=== PATIENT | female | born 1975 | race Two or more races ===

== ENCOUNTER 2022-07-12 07:06 | Emergency (ER) | payer MEDICAID, SELFPAY ==
[2022-07-12 07:38] VITALS: BP 128/71; PULSE 88; RESP 16; TEMP 37.7; O2SAT 99; BMI 21.6
[2022-07-12 08:08] LABS: IDNOW Serial# 16C4AD1C; IDNOW Serial# BCCEAD1C; Influenza A Negative (Negative); Influenza B2 Negative (Negative)
[2022-07-12 08:09] LABS: COVID-19 Test Positive (Negative)
--- NOTE | 2022-07-12 09:30 | ED.FEVER ---
HPI - Fever General Chief Complaint: Fever Stated Complaint: Fever/Headache/Ear pain Time Seen by Provider: 07/12/22 09:30 Source: patient Mode of arrival: ambulatory Limitations: no limitations History of Present Illness HPI Narrative: 46 yo female with no significant medical history presents to the ER with chills, body aches, and subjective fevers that started yesterday. She reports headaches, nasal congestion, bilateral ear pain, and some mild cough. No known sick contacts. She lives home alone. 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 She denies difficutly breathing, chest pains, N/V/D or abdominal pain. She reports poor appetite. MD elicited complaint: fever and malaise Onset (ago): day(s) (1) Exacerbating factors: exertion Relieving factors: rest Associated symptoms: chills, myalgias, headache, nasal congestion, cough, back/flank pain and extremity pain Treatments prior to arrival fever: none Related Data Allergies Allergy/AdvReac Type Severity Reaction Status Date / Time No Known Allergies Allergy Mild NOT Unverified 02/27/20 17:08 APPLICABLE Review of Systems Review of Systems: Yes all other systems are reviewed and are negative [facility] Social History Social History Advance Directives: No Advance Directives Information Provided: Yes Physical Exam Vital Signs: Vital Signs: Last Vital Signs Temp 98.8 F 07/12/22 09:31 Pulse 88 07/12/22 07:38 Resp 20 07/12/22 09:31 BP 118/55 L 07/12/22 09:31 Pulse Ox 99 07/12/22 09:31 O2 Del Method 07/12/22 09:31 BMI result Body Mass Index 21.6 Appearance: Alert. Oriented X3. No acute distress. Eyes: Pupils equal, round and reactive to light. ENT: Pharynx normal. Normal TMs bilaterally. Neck: Normal inspection. Neck supple. CVS: Normal heart rate and rhythm. Pulses normal. Respiratory: No respiratory distress. Breath sounds normal. Abdomen: Soft and nontender. +BS x4 Skin: Skin warm and dry. Normal skin color. Normal skin turgor. No rashes. Extremities: No lower extremity edema. No calf tenderness or swelling. Neuro: Oriented X 3. Nonfocal, steady gait. Course Course Course Narrative: 46 yo female presenting with fever, chills, body aches, headaches since yesterday. VSS and PE unremarkable. Found to have COVID. She is vaccinated x2 but not boosted due to swelling in the chest after 2nd Moderna vaccine in 2020. Discussed diagnosis, management and return precautions. She is stable for d/c home, work note provided. Medical Decision Making Medical Decision Making [facility] Narrative: 46-year-old female presenting with subjective fevers, chills, body aches and headaches. Nontoxic with stable vital signs, most likely viral syndrome. Differential Diagnosis Differential Diagnoses: The differential diagnosis associated with the presentation includes Viral syndrome, COVID, flu, RSV, less likely pneumonia, UTI, or other bacterial infection Lab Data [facility] Lab Attestation statement: I reviewed the patient's lab results. COVID positive. Labs: Lab Results 07/12/22 07/12/22 Range/Units 07:42 07:42 COVID-19 (DIALLO) Positive A (Negative) COVID-19 Clin Com See Note Influenza Type A (TONIE) Negative (Negative) Influenza Type B (TONIE) Negative (Negative) Influenza A & B Note See Note External Record Review External record reviewed: Outpatient record Tests considered The following testing was considered but not selected: Chest x-ray considered, not indicated, lungs are clear with saturations 99%. Prescription Management I considered prescription management with: Antiviral Critical Care Time Critical Care Time Critical Care Time: No Discharge Plan Discharge Clinical Impression: COVID-19 Patient Disposition: Home, Self-Care Instructions: Covid-19 Viral Syndrome and Novel Coronavirus (ED) Hey/Ath Additional Instructions: You were found to be COVID-19 POSITIVE today. Your exam oxygen levels were normal. Rest. Drink plenty of fluids. Do not go out in public for the next 7 days. Take over the counter cold/flu medications as needed for your symptoms. Take Tylenol and/or Motrin as needed for fevers and body aches. Follow up with your doctor this week. If you shortness of breath worsens, if you develop difficulty breathing or any other concerning symptom come back to the ER for further evaluation. Stand Alone Forms: Work/School Release
[2022-07-12 09:31] VITALS: BP 118/55; RESP 20; TEMP 37.1; O2SAT 99
== END 2022-07-12 09:45 | disposition home or self-care (01) ==
PROVIDERS: Emergency Provider Emergency Medicine
DX: U07.1 COVID-19 (principal); R50.9 Fever, unspecified
CPT/HCPCS: 87502; 87635; 99283

== ENCOUNTER 2022-07-19 08:48 | Emergency (ER) | payer MEDICAID, SELFPAY ==
[2022-07-19 08:55] VITALS: BP 132/76; PULSE 72; RESP 18; TEMP 36.1; O2SAT 99; BMI 21.6
--- NOTE | 2022-07-19 09:09 | PC.NURSE ---
Patient extremely upset/crying about employer not allowing her back to work due to a recent Covid diagnosis on 07/12. She is looking for a clearance note for work. NAD.
--- NOTE | 2022-07-19 09:19 | ED_ITS ---
HPI - General Adult General Chief complaint: General Medical Stated complaint: upset stomach l ear pain + covid Time Seen by Provider: 07/19/22 09:03 Source: patient Mode of arrival: ambulatory Limitations: no limitations History of Present Illness HPI narrative: 46-year-old female previously healthy here looking for a letter to return to work. Patient reports she was seen here on July 12 and tested positive for COVID. She has been quarantine at home since then. She wanted to return to work today but her job told her that she needed to have a negative COVID test. Patient is asymptomatic. Related Data Allergies Allergy/AdvReac Type Severity Reaction Status Date / Time No Known Allergies Allergy Mild NOT Verified 07/19/22 08:54 APPLICABLE Review of Systems Review of Systems: Yes all other systems are reviewed and are negative Constitutional: Constitutional: Reports no additional constitutional complaints, Denies body ache(s), Denies chills, Denies fever(s), Denies headache(s) and Denies weakness Eyes: Eyes: Reports no additional eye complaints and Denies change in vision ENT: Reports system reviewed and no additional complaints, except as documented, Denies dizziness, Denies headache(s), Denies nasal congestion, Denies nasal discharge and Denies neck pain Cardiovascular: Cardiovascular: Reports no additional cardiovascular complaints, Denies chest pain, Denies leg edema and Denies dyspnea Respiratory: Respiratory: Reports no additional respiratory complaints, Denies cough and Denies dyspnea Gastrointestinal: Gastrointestinal: Reports no additional gastrointestinal complaints, Denies abdominal pain, Denies diarrhea, Denies nausea and Denies vomiting Genitourinary: Genitourinary: Reports no additional female genitourinary complaints and Denies urinary incontinence Musculoskeletal: Musculoskeletal: Reports no additional musculoskeletal complaints, Denies back pain, Denies arthralgias, Denies joint swelling, Denies neck pain, Denies numbness and Denies tingling Integumentary/Breasts: Skin/Breast: Reports system reviewed and no additional complaints, except as docu and Denies rash Neurologic: Reports system reviewed and no additional complaints, except as documented, Denies dizziness, Denies headache(s), Denies numbness, Denies tingling and Denies weakness PMF Past Medical History Attestation statement: The following information was validated with the patient. Source: old records reviewed and nursing notes reviewed Social History Social History Advance Directives: No Physical Exam ED Vital Signs: Vital Signs - 24 hr 07/19/22 08:55 Temperature 97 F Pulse Rate 72 Respiratory Rate 18 Blood Pressure 132/76 Pulse Oximetry 99 Oxygen Delivery Method Room Air BMI result Body Mass Index 21.6 Const General: cooperative, healthy appearing, comfortable and no acute distress Orientation/consciousness: patient oriented x3 Limitations: no limitations HENMT Head: Yes normal to inspection Ears: hearing grossly normal bilaterally and TM's normal bilaterally Throat: Yes posterior oropharynx normal, Yes tonsils normal and Yes uvula midline Eyes General: appearance normal, both eyes and all related structures Pupils: Equal, round and reactive pupils present Neck Neck: Yes normal visual inspection and Yes full ROM Chest Chest palpation & inspection: normal inspection of the chest Resp Effort & Inspection: normal respiratory effort Auscultation: clear to auscultation bilaterally Cardio Rate: regular rate Rhythm: regular rhythm Peripheral pulses: Peripheral pulses 2+ throughout GI Inspection: Yes normal to inspection Palpation (GI): Soft to palpation and nontender General: Yes no CVA tenderness Back/Spine/Pelvis Back: no CVA tenderness Thoracic/Lumbar Spine: thoracic and lumbar spine normal to inspection Skin General skin exam: no rashes or lesions noted Neuro General: patient oriented x3 and moves all extremities Cranial nerves: Yes Equal, round and reactive pupils present Cognition (Neuro): normal cognition Gait exam (Neuro): Normal gait present Medical Decision Making Medical Decision Making [facility] Narrative: 46-year-old female here seeking return to work letter. Patient reports she tested positive f July 12 for COVID. She has been quarantine at home since then. She wanted to return to work today but was informed by her job that she needed a negative COVID test. Patient reports no symptoms and feels well I did explain to the patient that she may test positive for several weeks or months after having COVID-19. This does not mean that she cannot return to work sooner. She has completed her quarantine per [facility]. At this point I do not believe it is beneficial to retest her. I will give her a letter to return to work. Patient is agreeable with this plan of care. Differential Diagnosis Differential Diagnoses: The differential diagnosis associated with the presentation includes COVID Tests considered The following testing was considered but not selected: see discussion in MDM Discharge Plan Discharge Clinical Impression: Encounter for medical screening examination Patient Disposition: Home, Self-Care Instructions: Normal Exam (ED) Referrals: Physician,Unknown J [Primary Care Provider] - Stand Alone Forms: Work/School Release Interventions: ED Discharge Assessment Last Done: 07/19/22 09:36 Discharge Date/Time: 07/19/22 09:37
== END 2022-07-19 09:37 | disposition home or self-care (01) ==
PROVIDERS: Emergency Provider Emergency Medicine
DX: R10.13 Epigastric pain (principal); H92.03 Otalgia, bilateral
CPT/HCPCS: 99282

== ENCOUNTER 2023-04-03 09:22 | Emergency (ER) | payer MEDICAID, OTHER, SELFPAY | END 2023-04-03 10:29 | disposition left against medical advice (07) | LOC: HO.ED 10:28 | PROVIDERS: Emergency Provider Emergency Medicine | DX: R51.9 Headache, unspecified (principal); R11.2 Nausea with vomiting, unspecified; R07.0 Pain in throat ==

== ENCOUNTER 2025-04-10 05:09 | Observation (INO) | payer OTHER, SELFPAY ==
[2025-04-10] VITALS (9 sets, daily range): BP systolic 100–158; BP diastolic 60–98; PULSE 54–147; RESP 14–20; TEMP 35.7–36.7; O2SAT 93–100; BMI 21.5
--- NOTE | 2025-04-10 | ECG_ITS ---
Test Reason : tachy Blood Pressure : */* mmHG Vent. Rate : 143 BPM Atrial Rate : 143 BPM P-R Int : 124 ms QRS Dur : 74 ms QT Int : 266 ms P-R-T Axes : * 65 -82 degrees QTcB Int : 410 ms Sinus tachycardia Nonspecific ST and T wave abnormality Abnormal ECG When compared with ECG of 10-Oct-2009 13:30, Increase in ventricular rate Nonspecific ST and T wave abnormality Present Referred By: Jodi Nicholas Electronically Signed By: ADINA REGALADO
--- NOTE | ~2025-04-10 | CT_ITS ---
EXAMINATION: CT ABDOMEN PELVIS WITHOUT IV CONTRAST HISTORY: left flank pain COMPARISON: There are no prior studies available for comparison. TECHNIQUE: CT scan of the abdomen and pelvis was performed without contrast using standard departmental protocol. Coronal and sagittal reformatted images were generated and reviewed. Oral contrast material was not administered per department protocol. This CT exam was performed with one or more of the following dose reduction techniques: automated exposure control, adjustment of the mA and/or kV according to patient size, use of iterative reconstruction technique. DLP: 392 mGy-cm FINDINGS: LOWER CHEST: The visualized lung bases are clear. There is no pleural effusion. CARDIOVASCULATURE: The heart is normal in size. There is no pericardial effusion. LIVER: The liver is normal in size and contour. The liver has an unremarkable unenhanced appearance. GALLBLADDER / BILE DUCTS: The gallbladder is unremarkable. There is no intra or extrahepatic biliary ductal dilatation. SPLEEN: The spleen is normal in size and has an unremarkable unenhanced appearance. PANCREAS: The pancreas has an unremarkable unenhanced appearance. ADRENAL GLANDS: Unremarkable. KIDNEYS/RETROPERITONEUM: There is a punctate calculus at the upper pole the right kidney and a 3 mm calculus at the lower pole. There is a probable 10 mm cyst at the upper pole. There is no hydronephrosis. The left kidney demonstrates multiple 1-2 mm nonobstructing calculi at the upper pole and multiple calculi at the lower pole measuring up to 3 mm in size. There is moderate left hydroureteronephrosis to the level of a 3 mm UVJ calculus. There is a moderate amount of perinephric fluid and stranding about the left kidney. LYMPH NODES: No retroperitoneal lymphadenopathy is identified in the abdomen or pelvis. VASCULATURE: The abdominal aorta demonstrates atherosclerotic calcification, but is normal in caliber. MESENTERY/PERITONEUM: No free fluid. No masses. There is no free intraperitoneal gas. STOMACH: There is a small to moderate hiatal hernia. The remainder of the stomach is collapsed. SMALL BOWEL: The small bowel is normal in caliber. COLON: The colon is unremarkable. APPENDIX: Normal. URINARY BLADDER/PELVIC ORGANS: The urinary bladder is collapsed, limiting evaluation. The uterus has an unremarkable unenhanced appearance. BONES / SOFT TISSUES: No suspicious bony or soft tissue abnormalities. CT/CT abdomen pelvis wo IV con IMPRESSION: 1. Moderate left hydroureteronephrosis secondary to a 3 mm UVJ calculus. Bilateral nephrolithiasis as described. 2. Small hiatal hernia. Electronically signed by: Ronnell Beal MD 04/10/2025 08:52 AM EDT
--- NOTE | ~2025-04-10 | US_ITS ---
EXAMINATION: US RETROPERITONEAL COMPLETE (RENAL) CLINICAL INFORMATION: 3 mm Left UVJ stone. COMPARISON: CT scan performed yesterday. TECHNIQUE: Real-time imaging of the kidneys and bladder. FINDINGS: RIGHT KIDNEY: 12 x 4 x 6 cm (SAG x AP x TRV). The kidney is normal in size, contour, and echogenicity. Renal cortical thickness is normal. No calculi were demonstrated. No hydronephrosis. There is a 14 mm simple cyst in the superior pole. LEFT KIDNEY: 12 x 5 x 5 cm (SAG x AP x TRV). The kidney is normal in size, contour, and echogenicity. Renal cortical thickness is normal. 3 mm echogenic focus in the lower pole is consistent with a stone. Moderate hydronephrosis was present on CT scan yesterday has nearly resolved. BLADDER: Well distended and normal. Bilateral ureteral jets are demonstrated. US/US retroperitoneal comp IMPRESSION: Moderate left hydronephrosis that was present on CT scan yesterday has nearly resolved. Additionally, the left ureteral jet was documented. This suggests that the left ureterovesicular junction stone has passed. A 3 mm stone was demonstrated in the lower pole of the left kidney. Electronically signed by: Capo Morelos MD 04/11/2025 11:24 AM EDT
[2025-04-10 05:48] LABS: Hematocrit 42.9 % (37.0-47.0); Hemoglobin 14.2 g/dl (12.0-16.0); Imm Gran Abs Auto 0.11 X10*3/uL (0.00-0.03); Imm Gran Pct Auto 0.7 % (0.0-0.4); Lymphocytes Absolute Auto 3.5 X10*3/uL (1.2-4.9); MANUAL DIFF FLAG SCAN; Mean Corpuscular HGB Conc 33.1 g/dl (31.0-35.0); Mean Corpuscular Hemoglobin 30.2 pg (27.0-33.0); Mean Corpuscular Volume 91.3 fL (80.0-98.0); NRBC Abs Auto 0.000 X10*3/uL (0.0-0.012); NRBC Pct Auto 0.0 /100WBC (0.0-0.2); Platelet Count 273 X10*3/uL (160-400); Red Blood Count 4.70 X10*6/uL (4.20-5.50); SCAN SMEAR FLAG 1; White Blood Count 16.9 X10*3/uL (4.8-10.8)
[2025-04-10 05:57] LABS: Appearance Urine Cloudy; Glucose Urine UA Negative (Negative); PH 5.0 (5.0-9.0); Specific Gravity - Urine 1.025 (1.005-1.025); UMIC TRIGGER UACC YES
[2025-04-10 06:03] LABS: Alanine Aminotransferase 13 U/L (0-31); Albumin Level 4.7 g/dL (3.5-5.0); Alkaline Phosphatase 65 U/L (39-117); Anion Gap 15 (12-20); Aspartate Amino Transferase 17 U/L (5-31); Blood Urea Nitrogen 18 mg/dL (9-16); Calcium 9.3 mg/dL (8.4-10.2); Carbon Dioxide 22 mmol/L (22-29); Chloride 106 mmol/L (96-108); Creatinine Clr Calc Pharmacy 77.9; Estimated Glomerular Filt Rate > 60; Potassium 3.4 mmol/L (3.3-5.1); Sodium 140 mmol/L (135-145); Total Protein 7.9 g/dL (6.5-8.0)
--- OUTSIDE RECORDS SUMMARY | 2025-04-10 06:04 | XMS_ITS | Data Portability ---
Author Organization [place] - [facility], [employer] Address [address] [facility] [address] [place] [address] Assessment Encounter Date Assessment Date Assessment LastModified by Organization Details LastModified Time 11/19/2021 11/19/2021 Patient is low risk candidate or moderate risk surgery. RCRI risk score is less than 1. Risk factors for pulmonary disease include: None [email or web address] Not available 11/19/2021 10:47:31 Plan of Treatment Reminders Order Date Submit Date Provider Last Modified By Organization Details Last Modified Time Details Appointments None recorded. Lab CBC w/ auto diff 2021 [employer] [facility], [address] [place], [address], 02:02:44 CMP, serum or plasma 2021 [employer] [facility], [address] [place], [address], 02:02:44 PT/INR 2021 [employer] [facility], [address] [place], [address], 02:02:45 Referral None recorded. Procedures None recorded. Surgeries None recorded. Imaging CT, abdomen, w/wo contrast - Undergoing cosmetic procure, will pay out of pocket 2021 [facility], [address], [place], [address], 10:47:36 electrocar diogram 2021 [email or web address] [facility], [address], [address], [place], [address], 10:15:14 XR, chest, 2 view - Pt will pay out of pocket. Cosmetic surgeon wants CXR 2021 [facility], [address], [address], [place], [address], 16:20:46 Medication Orders None recorded. Patient TargetsNo targets recorded. Patient InstructionsNo instructions recorded. Reason for Referral None Reported. Results Created Date Observation Date Name Description Value Unit Range Abnormal Flag Note LastModifiedBy Organization Detail LastModifiedTime 11/20/19 22 11/20/2021 COMPR EHENS ROSA METAB OLIC PANEL glucose 83 mg/dL 65-139 normal Non-f astin g refer ence inter clifford Not Available [facility] [address], [address], 11/20/2021 02:02:44 11/20/19 22 11/20/2021 COMPR EHENS ROSA METAB OLIC PANEL urea nitrogen (BUN) 16 mg/dL 7-25 normal Not Available [facility] [address], [address], 11/20/2021 02:02:44 11/20/19 22 11/20/2021 COMPR EHENS ROSA METAB OLIC PANEL creatinine 0.78 mg/dL 0.50-1 .10 normal Not Available [facility] [address], [address], 11/20/2021 02:02:44 11/20/19 22 11/20/2021 COMPR EHENS ROSA METAB OLIC PANEL eGFR non-afr. estonian 93 mL/mi n/1.7 3m2 > or = 60 normal Not Available [facility] [address], [address], 11/20/2021 02:02:44 11/20/19 22 11/20/2021 COMPR EHENS ROSA METAB OLIC PANEL eGFR 108 mL/mi n/1.7 3m2 > or = 60 normal Not Available [facility] [place] [facility] [address], [place], [address], 11/20/2021 02:02:44 11/20/19 22 11/20/2021 COMPR EHENS ROSA METAB OLIC PANEL BUN/creatini ne ratio NOT APPLIC ABLE (calc ) 6-22 Not Available [facility] [place] [facility] [address], [place], [address], 11/20/2021 02:02:44 11/20/19 22 11/20/2021 COMPR EHENS ROSA METAB OLIC PANEL sodium 138 mmol/ L 135-14 6 normal Not Available [facility] [place] [facility] [address], [place], [address], 11/20/2021 02:02:44 11/20/19 22 11/20/2021 COMPR EHENS ROSA METAB OLIC PANEL potassium 3.9 mmol/ L 3.5-5. 3 normal Not Available [facility] [address], [place], [address], 11/20/2021 02:02:44 11/20/19 22 11/20/2021 COMPR EHENS ROSA METAB OLIC PANEL chloride 101 mmol/ L 98-110 normal Not Available [facility] [address], [place], [address], 11/20/2021 02:02:44 11/20/19 22 11/20/2021 COMPR EHENS ROSA METAB OLIC PANEL carbon dioxide 29 mmol/ L 20-32 normal Not Available [facility] [address], [address], 11/20/2021 02:02:44 11/20/19 22 11/20/2021 COMPR EHENS ROSA METAB OLIC PANEL calcium 9.9 mg/dL 8.6-10 .2 normal Not Available [facility] [place] [facility] [address], [place], [address], 11/20/2021 02:02:44 11/20/19 22 11/20/2021 COMPR EHENS ROSA METAB OLIC PANEL protein, total 7.3 g/dL 6.1-8. 1 normal Not Available [facility] [address], [place], [address], 11/20/2021 02:02:44 11/20/19 22 11/20/2021 COMPR EHENS ROSA METAB OLIC PANEL albumin 4.8 g/dL 3.6-5. 1 normal Not Available [facility] [address], [place], [address], 11/20/2021 02:02:44 11/20/19 22 11/20/2021 COMPR EHENS ROSA METAB OLIC PANEL globulin 2.5 g/dL_ (calc ) 1.9-3. 7 normal Not Available [facility] [address], [place], [address], 11/20/2021 02:02:44 11/20/19 22 11/20/2021 COMPR EHENS ROSA METAB OLIC PANEL albumin/glob ulin ratio 1.9 (calc ) 1.0-2. 5 normal Not Available [facility] [address], [place], [address], 11/20/2021 02:02:44 11/20/19 22 11/20/2021 COMPR EHENS ROSA METAB OLIC PANEL bilirubin, total 0.4 mg/dL 0.2-1. 2 normal Not Available [facility] [address], [place], [address], 11/20/2021 02:02:44 11/20/19 22 11/20/2021 COMPR EHENS ROSA METAB OLIC PANEL alkaline phosphatase 47 U/L 31-125 normal Not Available [facility] [place] [facility] [address], [place], [address], 11/20/2021 02:02:44 11/20/19 22 11/20/2021 COMPR EHENS ROSA METAB OLIC PANEL AST 13 U/L 10-30 normal Not Available [facility] [address], [place], [address], 11/20/2021 02:02:44 11/20/19 22 11/20/2021 COMPR EHENS ROSA METAB OLIC PANEL ALT 9 U/L 6-29 normal Not Available [facility] [address], [place], [address], 11/20/2021 02:02:44 11/20/19 22 11/20/2021 CBC (INCL UDES DIFF/ PLT) white blood cell count 8.1 thous and/u L 3.8-10 .8 normal Not Available [facility] [address], [place], [address], 11/20/2021 02:02:44 11/20/19 22 11/20/2021 CBC (INCL UDES DIFF/ PLT) red blood cell count 4.72 rodolfo on/uL 3.80-5 .10 normal Not Available [facility] [address], [place], [address], 11/20/2021 02:02:44 11/20/19 22 11/20/2021 CBC (INCL UDES DIFF/ PLT) hemoglobin 14.3 g/dL 11.7-1 5.5 normal Not Available [facility] [address], [place], [address], 11/20/2021 02:02:44 11/20/19 22 11/20/2021 CBC (INCL UDES DIFF/ PLT) hematocrit 42.8 % 35.0-4 5.0 normal Not Available [facility] [place] [facility] [address], [place], [address], 11/20/2021 02:02:44 11/20/19 22 11/20/2021 CBC (INCL UDES DIFF/ PLT) MCV 90.7 fL 80.0-1 00.0 normal Not Available [facility] [place] [facility] [address], [place], [address], 11/20/2021 02:02:44 11/20/19 22 11/20/2021 CBC (INCL UDES DIFF/ PLT) MCH 30.3 pg 27.0-3 3.0 normal Not Available [facility] [place] [facility] [address], [place], [address], 11/20/2021 02:02:44 11/20/19 22 11/20/2021 CBC (INCL UDES DIFF/ PLT) MCHC 33.4 g/dL 32.0-3 6.0 normal Not Available [facility] [place] [facility] [address], [place], [address], 11/20/2021 02:02:44 11/20/19 22 11/20/2021 CBC (INCL UDES DIFF/ PLT) RDW 13.0 % 11.0-1 5.0 normal Not Available [facility] [place] [facility] [address], [place], [address], 11/20/2021 02:02:44 11/20/19 22 11/20/2021 CBC (INCL UDES DIFF/ PLT) platelet count 240 thous and/u L 140-40 0 normal Not Available [facility] [place] [facility] [address], [place], [address], 11/20/2021 02:02:44 11/20/19 22 11/20/2021 CBC (INCL UDES DIFF/ PLT) MPV 10.6 fL 7.5-12 .5 normal Not Available [facility] [place] [facility] [address], [place], [address], 11/20/2021 02:02:44 11/20/19 22 11/20/2021 CBC (INCL UDES DIFF/ PLT) absolute neutrophils 3815 cells /uL 1500-7 800 normal Not Available [facility] [place] [facility] [address], [place], [address], 11/20/2021 02:02:44 11/20/19 22 11/20/2021 CBC (INCL UDES DIFF/ PLT) absolute lymphocytes 2527 cells /uL 850-39 00 normal Not Available [facility] [place] [facility] [address], [place], [address], 11/20/2021 02:02:44 11/20/19 22 11/20/2021 CBC (INCL UDES DIFF/ PLT) absolute monocytes 980 cells /uL 200-95 0 high Not Available [facility] [place] [facility] [address], [place], [address], 11/20/2021 02:02:44 11/20/19 22 11/20/2021 CBC (INCL UDES DIFF/ PLT) absolute eosinophils 680 cells /uL 15-500 high Not Available [facility] [place] [facility] [address], [place], [address], 11/20/2021 02:02:44 11/20/19 22 11/20/2021 CBC (INCL UDES DIFF/ PLT) absolute basophils 97 cells /uL 0-200 normal Not Available [facility] [place] [facility] [address], [place], [address], 11/20/2021 02:02:44 11/20/19 22 11/20/2021 CBC (INCL UDES DIFF/ PLT) neutrophils 47.1 % normal Not Available [facility] [place] [facility] [address], [place], [address], 11/20/2021 02:02:44 11/20/19 22 11/20/2021 CBC (INCL UDES DIFF/ PLT) lymphocytes 31.2 % normal Not Available [facility] [address], [place], [address], 11/20/2021 02:02:44 11/20/19 22 11/20/2021 CBC (INCL UDES DIFF/ PLT) monocytes 12.1 % normal Not Available [facility] [address], [place], [address], 11/20/2021 02:02:44 11/20/19 22 11/20/2021 CBC (INCL UDES DIFF/ PLT) eosinophils 8.4 % normal Not Available [facility] [address], [place], [address], 11/20/2021 02:02:44 11/20/19 22 11/20/2021 CBC (INCL UDES DIFF/ PLT) basophils 1.2 % normal Not Available [facility] [address], [place], [address], 11/20/2021 02:02:44 11/20/19 22 11/20/2021 PROTH ROMBI N TIME- INR INR 1.0 normal Refer ence Range 0.9-1 .1 Moder ate-i ntens ity Warfa rin Thera py 2.0-3 .0 Highe r-int ensit y Warfa rin Thera py 3.0-4 .0 Not Available [facility] [place] [facility] [address], [place], [address], 11/20/2021 02:02:45 11/20/19 22 11/20/2021 PROTH ROMBI N TIME- INR PT 10.1 sec 9.0-11 .5 normal For addit ional cristopher youssef refer to http: //megan patel stdia gnost ics.c om/fa q/FAQ 104 (This link is being provi ded for gayla henry/ delores corona purpo ses only. ) Not Available [facility] [place] [facility] [address], [place], [address], 11/20/2021 02:02:45 11/20/19 elect rocar diogr am No observ ation record ed. [email or web address] [address], [place], [address], 11/19/2021 10:15:13 11/20/19 22 elect rocar diogr am No observ ation record ed. BARCODE [facility] [address] [facility] [address], [place], [address], 11/19/2021 10:18:14 Result Notes None recorded. Problems Name Problem SNOMED Code Status Onset Date Resolution Date Notes Provider Name and Address Organization Details Recorded Time Seasonal allergy 595509252 Active 022 Herman Saucedo MD [address] [facility], [place], [address] , [facility] 09:53:58 Problem Notes None recorded. Medical Equipment None Reported. Allergies No known drug allergies Medications Name Sig Start Date Stop Date Status Note LastModified by Organization Details LastModified Time Zyrtec-D 5 mg-120 mg tablet,exte nded release TAKE 1 TABLET BY MOUTH EVERY 24 HOURS active Not Available Not Available No t Available cetirizine 10 mg tablet TAKE 1 TABLET BY MOUTH EVERY DAY 11/19 completed Not Available Not Available Not Available nicotine (polacrilex ) 2 mg gum CHEW 1 GUM EVERY 2 HOURS NEEDED FOR SMOKING CESSATION 11/19 completed Not Available Not Available Not Available valacyclovi r 1 gram tablet TAKE 1 TABLET BY MOUTH TWICE A DAY FOR 10 DAYS 11/19 completed Not Available Not Available Not Available mirtazapine 15 mg tablet TAKE 2 TABLETS BY MOUTH EVERY DAY AT BEDTIME 11/19 completed Not Available Not Available Not Available ergocalcife rol (vitamin D2) 1,250 mcg (50,000 unit) capsule TAKE 1 CAPSULE BY MOUTH EVERY WEEK,X30 DAYS 11/19 completed Not Available Not Available Not Available ibuprofen 600 mg tablet TAKE 1 TABLET (ORAL) EVERY 6 HOURS NEEDED FOR 7 DAYS 11/19 completed Not Available Not Available Not Available fluticasone propionate 50 mcg/actuati on nasal spray,suspe nsion SPRAY 1 SPRAY INTO EACH NOSTRIL EVERY DAY IN THE MORNING 11/19 completed Not Available Not Available Not Available clotrimazol e 1 % topical cream APPLY 1 APPLICATI ON TOPICALLY 2 TIMES A DAY 11/19 completed Not Available Not Available Not Available Vitals Date Recorded Body weight Body mass index (BMI) Body height Body temperature Heart rate Oxygen saturation Oxygen saturation in Arterial blood by Pulse oximetry Systolic And Diastolic Provider Name and Address Organization Details Last Updated DateTime 2 57286.6 8 g 20.8 kg/m2 162.56 cm 98.1 [degF] 78 /min 98 % 98 % 121/88 mm[Hg] [facility] 2 09:45:21 Social History None recorded. Functional Status None recorded. Mental Status None recorded. Family History Nothing Reported. Medical History No medical history recorded. Gynecological HistoryNo gynecological history recorded. Obstetrics History GPAL:G 0 P 0 0 0 0 Past Encounters Encounter ID Performer Location Encounter Start Date Encounter Closed Date Diagnosis/Indication Diagnosis SNOMED-CT Code Diagnosis ICD10 Code Diagnosis IMO Codes Diagnosis Note [id number] Herman Saucedo MD [facility] [address] [facility] [address] [place] [address] 11/19/2021 09:36:27 11/19/2021 16:23:11 Pre-surgery evaluation 765943007 Z01.818 Patient is healthy and pending labs does not require any further evaluation . D/w pt that she needs to stop smoking marijuana. Ordering CXR per surgeon Cosmetic surgery 0373600 0 Z41.1 Pt is getting ladr864. Plan per surgeon Umbilical hernia 5940498 07 K42.9 Per surgeon, pt need a CT w/wo contrast. Pt will pay out of pocket. Health Concerns Section Related Observation LastModified by Organization Detai ls LastModified Time None Recorded Concern Status LastModified by Organization Details LastModified Time None Recorded Advance Directives Directive None Recorded Payers Insurance Date Sequence Insurance Name Policy Number Policy Garland Covered Member ID Garland Member ID Guarantor Name 11/19/2021 1 *SELF PAY* Gl divine Man Notes Date Note Type Note Provider Name and Address Organization Details Recorded Time 11/19/2021 text/html ROS as noted in the HPI Patient is here for a preop evaluation. Pt is scheduled for cosmetic surgery on December 03, 2021.Surgeon: Bebeto Waddell MDPCP: [facility]: Yes. Uses MarijuanaAlcohol use: Mild.Sleep apnea: Snoring - Yes, Does not fall asleep easily while driving, Does not fall asleep easily during the dayMax Activity Status: can do heavy work around the houseGoing for Liposuction 360 with possible hernia repair. Herman Saucedo MD [address] [place] [address],[address], [place], [address], [place] [facility] 11/23/2021 12:27:34 OBGyn Episode No OBEpisode recorded.
--- OUTSIDE RECORDS SUMMARY | 2025-04-10 06:04 | XMS_ITS | Clinical Summary ---
Author Organization [facility] Address [address] [place] [address] Care Team Providers Care Embroidery Patternmaker Name Role Phone Herman Saucedo MD Primary Care Provider [phone] Social History Tobacco Use Types Packs/Day Years Used Date Smoking Tobacco: Never Assessed Sex and Gender Information Value Date Recorded Sex Assigned at Not on file Gender Identity Not on file Sexual Orientation Not on file Plan of Treatment Health Maintenance Due Date Last Done Comments Hepatitis B Vaccines (1 of 3 - 3-dose series) 1977 Hepatitis C Screening 1977 COVID-19 Vaccine (#1) 05/29/1978 Depression Screening 1989 Preventative Health Evaluation 11/28/1995 DTap / Tdap / Td (1 - Tdap) 1996 Cervical Cancer Screening (P ap Smear) 1998 Colon Cancer Screening (Colonoscopy) 2022 Influenza Vaccine (#1) 2025 Pneumococcal Vaccine Aged Out No long er eligible based on patient's age to complete this topic RSV Ped < 20 months Aged Out No longe r eligible based on patient's age to complete this topic Care Teams Embroidery Patternmaker Relationship Specialty Start Date End Date Herman Saucedo MD [address] [place] [id number] PCP - General Internal Medicine 11/19/21
--- NOTE | 2025-04-10 06:25 | ED_ITS ---
HPI - Nausea/Vomiting/Diarrhea General Chief complaint: Nausea/Vomiting/Diarrhea Stated complaint: n/v/d Time Seen by Provider: 04/10/25 06:02 Source: patient Mode of arrival: ambulatory Limitations: no limitations History of Present Illness HPI Narrative: This is a 49 years old female presented to the emergency department complaining of left flank pain since yesterday , she has been vomiting as well and is present since last night MD elicited complaint: nausea and vomiting Onset (ago): day(s) (1) Description of vomiting: watery Associated abdominal pain: Yes Location of pain: L flank Radiation: left flank Pain consistency: constant Severity: moderate Quality: cramping Exacerbating factors: none Relieving factors: none Related Data Home Medications ?Medication ?Instructions ?Recorded ?Confirmed cetirizine 10 mg tablet 10 mg PO DAILY 04/10/25 mirtazapine 15 mg tablet 15 mg PO BEDTIME 04/10/25 Allergies Allergy/AdvReac Type Severity Reaction Status Date / Time No Known Allergies Allergy Mild NOT Verified 04/10/25 05:13 APPLICABLE Review of Systems 2 Constitutional: Constitutional: Reports no additional constitutional complaints Cardiovascular: Cardiovascular: Reports no additional cardiovascular complaints Neurologic: Reports system reviewed and no additional complaints, except as documented PMFSH Past Medical History [facility] Narrative: She denies any medical problems Social History Social History Smoked in Last 30 Days: No Use of substances other than those prescribed or required for medical reasons: Yes Substance Use Type: Marijuana Advance Directives: No Advance Directives Information Provided: Yes Patient : No Physical Exam 2 Exam: Exam: Mild distress Vital Signs: Vital Signs: Last Vital Signs Temp 96.3 F L 04/10/25 06:35 Pulse 69 04/10/25 06:35 Resp 20 04/10/25 11:11 BP 158/98 H 04/10/25 05:35 Pulse Ox 100 04/10/25 06:35 O2 Del Method Room Air 04/10/25 06:35 BMI result Body Mass Index 21.5 Const: General: cooperative Nutritional Appearance: average body habitus Orientation/consciousness: patient oriented x3 HEENT: Head: Yes normal to inspection General nose exam: Normal external nose present Face and sinus: Yes normal facial exam Mouth: Normal oral and palatal mucosa present Neck: Neck: Yes full ROM Chest: Chest palpation & inspection: normal inspection of the chest Resp: Effort & Inspection: normal respiratory effort Auscultation: clear to auscultation bilaterally Cardio: Jugular venous distension: no JVD Rate: regular rate Rhythm: r egular rhythm GI: Inspection: Yes normal to inspection Palpation (GI): Soft to palpation Percussion: Yes normal to percussion Skin: General skin exam: no rashes or lesions noted, elasticity normal and turgor normal Rashes: no rashes Neuro: General: patient oriented x3 Cranial nerves: Yes CN's II-XII intact bilaterally Course Reevaluation(s) Reevaluation #1: Patient is still complaining of pain after multiple rounds of pain medicine I discussed the case with the urologist at this time we will admit the patient for pain control if the pain continues she may need the ureteric stent Time: 11:07 Consultations Consultation #1: Urologist Medications Administered Discontinued Medications Generic Name Dose Route Start Last Admin Trade Name Freq PRN Reason Stop Dose Admin Hydromorphone HCl 0.5 mg 04/10/25 06:40 04/10/25 06:49 Hydromorphone Hcl 0.5 Mg/0.5 Ml Syringe IVPUSH 04/10/25 06:41 0.5 mg ONCE ONE Administration Protocol Hydromorphone HCl 0.5 mg 04/10/25 09:13 04/10/25 09:30 Hydromorphone Hcl 0.5 Mg/0.5 Ml Syringe IVPUSH 04/10/25 09:14 0.5 mg ONCE ONE Administration Protocol Hydromorphone HCl 0.5 mg 04/10/25 10:49 04/10/25 11:11 Hydromorphone Hcl 0.5 Mg/0.5 Ml Syringe IVPUSH 04/10/25 10:50 0.5 mg ONCE ONE Administration Protocol Sodium Chloride 1,000 mls @ 999 mls/hr 04/10/25 06:30 04/10/25 08:38 Ns IVCONT 04/10/25 07:30 Infused .Q1H1M RONNY Infusion Lactated Ringer's 1,000 mls @ 999 mls/hr 04/10/25 09:45 04/10/25 10:38 Lr IV 04/10/25 10:45 999 mls/hr .Q1H1M RONNY Administration Ketorolac Tromethamine 15 mg 04/10/25 06:21 04/10/25 06:29 Ketorolac Tromethamine 15 Mg/Ml Vial IVPUSH 04/10/25 06:22 15 mg ONCE ONE Administration Ondansetron HCl 4 mg 04/10/25 06:21 04/10/25 06:29 Ondansetron Hcl 4 Mg/2 Ml Vial IVPUSH 04/10/25 06:22 4 mg ONCE ONE Administration Ondansetron HCl 4 mg 04/10/25 09:35 04/10/25 10:39 Ondansetron Hcl 4 Mg/2 Ml Vial IVPUSH 04/10/25 09:36 4 mg ONCE ONE Administration Tamsulosin HCl 0.4 mg 04/10/25 11:05 04/10/25 11:10 Tamsulosin Hcl 0.4 Mg Capsule PO 04/10/25 11:06 0.4 mg ONCE ONE Administration Medical Decision Making Medical Decision Making [facility] Narrative: Patient presented with a left flank pain nausea and vomiting we will administer IV fluid antiemetic and reassess Differential Diagnosis Differential Diagnoses: The differential diagnosis associated with the presentation includes Broad differential diagnosis which include the renal colic/pyelonephritis/diverticulitis Admission/Observation Consideration of admission/observation: Escalation of care including admission/observation considered Consult Healthcare Provider Management of the patient was discussed with: Hospitalist and Spray Crew Lab Data [facility] Lab Attestation statement: I reviewed the patient's lab results. 04/10/25 05:42 04/10/25 05:42 Labs: Lab Results 04/10/25 04/10/25 04/10/25 Range/Units 05:42 05:49 06:45 WBC 16.9 H (4.8-10.8) X10*3/uL RBC 4.70 (4.20-5.50) X10*6/uL Hgb 14.2 (12.0-16.0) g/dl Hct 42.9 (37.0-47.0) % MCV 91.3 (80.0-98.0) fL MCH 30.2 (27.0-33.0) pg MCHC 33.1 (31.0-35.0) g/dl RDW 13.2 (11.0-16.0) % Plt Count 273 (160-400) X10*3/uL MPV 10.2 (9.4-12.3) fL Immature Gran % (Auto) 0.7 H (0.0-0.4) % Neut % (Auto) 65.7 (45-73) % Lymph % (Auto) 20.7 (20-40) % [place] % (Auto) 9.6 (2-11) % Eos % (Auto) 2.7 (0-4) % Baso % (Auto) 0.6 (0-2) % Lymph # (Auto) 3.5 (1.2-4.9) X10*3/uL [place] # (Auto) 1.6 H (0.1-1.2) X10*3/uL Eos # (Auto) 0.5 H (0.0-0.4) X10*3/uL Baso # (Auto) 0.1 (0.0-0.2) X10*3/uL Abs Immat Gran (auto) 0.11 H (0.00-0.03) X10*3/uL Absolute Neuts (auto) 11.1 H (2.0-8.3) x10*3/uL Absolute Nucleated RBC 0.000 (0.0-0.012) X10*3/uL Nucleated RBC % (auto) 0.0 (0.0-0.2) /100WBC Smear Tech's Comments VERIFIED Sodium 140 (135-145) mmol/L Potassium 3.4 (3.3-5.1) mmol/L Chloride 106 (96-108) mmol/L Carbon Dioxide 22 (22-29) mmol/L Anion Gap 15 (12-20) BUN 18 H (9-16) mg/dL Creatinine 0.77 (0.5-1.4) mg/dL Estim Creat Clear Calc 77.9 Estimated GFR > 60 Random Glucose 151 H (60-115) mg/dL Lactic Acid 1.8 (0.5-2.0) mmol/L Calcium 9.3 (8.4-10.2) mg/dL Total Bilirubin 0.5 (0.0-1.0) mg/dL AST 17 (5-31) U/L ALT 13 (0-31) U/L Alkaline Phosphatase 65 (39-117) U/L Total Protein 7.9 (6.5-8.0) g/dL Albumin 4.7 (3.5-5.0) g/dL Urine Color Yellow Urine Appearance Cloudy Urine pH 5.0 (5.0-9.0) Ur Specific [place] 1.025 (1.005-1.025) Urine Protein 100 (2+) H (Neg-Trace) mg/dL Urine Glucose (UA) Negative (Negative) mg/dL Urine Ketones Trace (Negative) mg/dL Urine Blood Moderate (2+) H (Negative) Urine Nitrite Negative (Negative) Ur Leukocyte Esterase Negative (Negative) Urine RBC 3-5 H (0-2) /HPF Urine WBC 0-5 (0-5) /HPF Ur Squamous Epith Cells 11-20 (0-2) /HPF Urine Bacteria 2+ (None Seen) Hyaline Casts 0-2 (0-2) /LPF Urine Test NEGATIVE (NEGATIVE) Independent Interpretation I performed an independent interpretation of an: CT Scan Interpretation: left hydro 3 mm stone Radiology Impression Discussion of test interpretation with radiology: I have reviewed the radiologist's reading. Radiologist Impression: 3 mm stone left Discharge Plan Discharge Clinical Impression: Renal colic on left side Patient Disposition: Admitted As Inpatient Print Language: Com[place]an
[2025-04-10 07:06] LABS: UPreg QC Valid YES
[2025-04-10] MEDS: Lactated Ringers 1,000 ML 999 ML IV ×2 (10:38→19:58)
--- NOTE | 2025-04-10 11:11 | PC.NURSE ---
Lynn (hospitalist) at bedside speaking with patient. Pending admission for pain management r/t 3mm kidney stone.
--- NOTE | 2025-04-10 11:30 | PHA.MEDREC ---
Addendum entered by Raquel Acosta RPh 04/10/25 12:20: reviewed by liu Original Note: Pharmacy Consult ? Medication Reconciliation Pharmacy has completed the medication reconciliation. Spoke with pt and she confirmed her medications.
--- NOTE | 2025-04-10 11:33 | P.HPHOSP_ITS ---
History of Present Illness Date of Service: 04/10/25 Attending physician on admission: Vivian Chiang Chief Complaint: left side abdominal pain This is a 49-year-old female who presents to the emergency department with abdominal pain. Patient states that she began having left-sided abdominal pain with associated chills which began overnight. She reports episodes of vomiting, no diarrhea. She reports episodes where she feels cold but is sweating. In the emergency department she was noted to have elevated white blood cell count of 16.9. Urinalysis was obtained and was negative for acute infection. She had CT scan of the abdomen which showed moderate left hydroureteronephrosis secondary to 3 mm UVJ calculus with bilateral nephrolithiasis. Patient had severe pain and required multiple doses of IV narcotics. Continued to report left-sided pain, denies left flank pain or urinary symptoms. Review of Systems 2 Review of Systems: Yes all other systems are reviewed and are negative Constitutional: Constitutional: Reports chills Gastrointestinal: Gastrointestinal: Reports abdominal pain and Denies diarrhea Genitourinary: Genitourinary: Denies urinary hesitancy and Denies urinary urgency [facility] Social History Smoked in Last 30 Days: No Use of substances other than those prescribed or required for medical reasons: Yes Substance Use Type: Marijuana Advance Directives: No Advance Directives Information Provided: Yes Patient : No Meds Allergies Allergy/AdvReac Type Severity Reaction Status Date / Time No Known Allergies Allergy Mild NOT Verified 04/10/25 05:13 APPLICABLE Active Medications: Current Medications Acetaminophen (Acetaminophen 325 Mg Tablet) 650 mg PO Q6H PRN PRN Reason: Pain, Mild 1-3,fever,headache Calcium Carbonate (Calcium Carbonate 750 Mg Tab.Chew) 750 mg PO Q4H PRN PRN Reason: Heartburn Hydromorphone HCl (Hydromorphone Hcl 0.5 Mg/0.5 Ml Syringe) 0.5 mg IVPUSH Q4H PRN; Protocol PRN Reason: Pain, Severe (Pain Scale 7-10) Lactated Ringer's (Lr) 1,000 mls @ 125 mls/hr IVCONT .Q8H RONNY Ketorolac Tromethamine (Ketorolac Tromethamine 30 Mg/Ml Vial) 15 mg IVPUSH Q6H PRN PRN Reason: Pain, Moderate(Pain Scale 4-6) Stop: 04/15/25 11:28 Magnesium Hydroxide (Milk Of Magnesia 30 Ml Oral.Susp) 30 ml PO DAILY PRN PRN Reason: Constipation Melatonin (Melatonin 3 Mg Tablet) 6 mg PO BEDTIME PRN PRN Reason: Insomnia Sodium Chloride (0.9 % Sodium Chloride Flush 3 Ml Syringe) 3 ml IVFLUSH QSHIFT [facility] Home Medications ?Medication ?Instructions ?Recorded ?Confirmed ?Last Taken ?Type cetirizine 10 mg tablet 10 mg PO DAILY PRN allergies 04/10/25 04/10/25 Unknown History mirtazapine 15 mg tablet 15 mg PO BEDTIME 04/10/2504/09/25 History Physical Exam 2 Vital Signs and Narrative: Vital Signs: Last Vital Signs Temp 96.3 F L 04/10/25 06:35 Pulse 69 04/10/25 06:35 Resp 20 04/10/25 11:11 BP 158/98 H 04/10/25 05:35 Pulse Ox 100 04/10/25 06:35 O2 Del Method Room Air 04/10/25 06:35 BMI result Body Mass Index 21.5 Const: Other: Appears uncomfortable, crying General: alert and awake Nutritional Appearance: average body habitus Orientation/consciousness: patient oriented x3 Resp: Effort & Inspection: normal respiratory effort and able to speak in complete sentences Cardio: Rate: regular rate GI: Inspection: No distended Palpation (GI): Soft to palpation : Other: no CVAT Neuro: General: patient oriented x3, moves all extremities and CN's II-XI intact bilaterally Results Labs 04/10/25 05:42 04/10/25 05:42 Labs: Laboratory Results - last 24 hr 04/10/25 04/10/25 04/10/25 05:42 05:49 06:45 MCV 91.3 MCH 30.2 MCHC 33.1 RDW 13.2 Plt Count 273 MPV 10.2 Immature Gran % (Auto) 0.7 H Neut % (Auto) 65.7 Lymph % (Auto) 20.7 [place] % (Auto) 9.6 Eos % (Auto) 2.7 Baso % (Auto) 0.6 Lymph # (Auto) 3.5 [place] # (Auto) 1.6 H Eos # (Auto) 0.5 H Baso # (Auto) 0.1 Abs Immat Gran (auto) 0.11 H Absolute Neuts (auto) 11.1 H Absolute Nucleated RBC 0.000 Nucleated RBC % (auto) 0.0 Smear Tech's Comments VERIFIED Anion Gap 15 Estim Creat Clear Calc 77.9 Estimated GFR > 60 Random Glucose 151 H Lactic Acid 1.8 Calcium 9.3 Total Bilirubin 0.5 AST 17 ALT 13 Alkaline Phosphatase 65 Total Protein 7.9 Albumin 4.7 Urine Color Yellow Urine Appearance Cloudy Urine pH 5.0 Ur Specific [place] 1.025 Urine Protein 100 (2+) H Urine Glucose (UA) Negative Urine Ketones Trace Urine Blood Moderate (2+) H Urine Nitrite Negative Ur Leukocyte Esterase Negative Urine RBC 3-5 H Urine WBC 0-5 Ur Squamous Epith Cells 11-20 Urine Bacteria 2+ Hyaline Casts 0-2 Urine Test NEGATIVE Imaging Radiologist's Impressions: Impressions Abdomen/Pelvis CT 04/10/25 08:30 IMPRESSION: 1. Moderate left hydroureteronephrosis secondary to a 3 mm UVJ calculus. Bilateral nephrolithiasis as described. 2. Small hiatal hernia. Electronically signed by: Ronnell Beal MD 04/10/2025 08:52 AM EDT RP Assessment and Plan (1) Renal colic on left side: Status: Acute Plan This is a 49-year-old female with no significant past medical history who presents to the emergency department with abdominal pain found to have kidney stone Abdominal pain Due to left UVJ stone with associated hydroureteronephrosis IV hydration, flomax, pain control urology consultation If stone does not pass, we will need stent in a.m.. We will be NPO at midnight UA negative, no need for Abx at this time DVT prophylaxis-mechanical devices, encourage early ambulation Quality Stroke Does the patient have a stroke diagnosis?: No VTE Prior VTE?: No VTE Risk Level:: Medical - moderate - high VTE Device Contraindication: N/A - Device Ordered VTE Drug Contraindication: Treatment Not Indicated
--- NOTE | 2025-04-10 13:14 | MHC.CM.PN ---
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
[2025-04-10] MEDS: Lactated Ringers 1,000 ML 125 ML IVCONT ×2 (13:24→21:33)
--- NOTE | 2025-04-10 16:50 | PM.UROCN ---
History of Present Illness Consult details Consult date: 04/10/25 Narrative: Jessica is a 49 year old female with left flank pain. CTAP-KIDNEYS/RETROPERITONEUM: There is a punctate calculus at the upper pole the right kidney and a 3 mm calculus at the lower pole. There is a probable 10 mm cyst at the upper pole. There is no hydronephrosis. The left kidney demonstrates multiple 1-2 mm nonobstructing calculi at the upper pole and multiple calculi at the lower pole measuring up to 3 mm in size. There is moderate left hydroureteronephrosis to the level of a 3 mm UVJ calculus. Review of Systems Review of Systems: Yes all other systems are reviewed and are negative Constitutional: Constitutional: Reports no additional constitutional complaints Eyes: Eyes: Reports no additional eye complaints ENT: Reports system reviewed and no additional complaints, except as documented Cardiovascular: Cardiovascular: Reports no additional cardiovascular complaints Respiratory: Respiratory: Reports no additional respiratory complaints Gastrointestinal: Gastrointestinal: Reports no additional gastrointestinal complaints Genitourinary: Genitourinary: Reports as per HPI Musculoskeletal: Musculoskeletal: Reports no additional musculoskeletal complaints Integumentary/Breasts: Skin/Breast: Reports system reviewed and no additional complaints, except as docu Neurologic: Reports system reviewed and no additional complaints, except as documented Psychiatric: Psychiatric: Reports no additional psychiatric complaints Endocrine: Endocrine: Reports no additional endocrine complaints Hematologic/Lymphatic: Hematologic/Lymphatic: Reports no additional hematologic/lymphatic complaints Allergic/Immunologic: Allergic/Immunologic: Reports no additional allergic/immunologic complaints PMFSH Social History Social History Patient Tobacco Use Status: Current everyday Tobacco user Tobacco use type: Cigar Years Smoked: 42 e-Cigarette/Vaping Use: Never Used Substance Use Type: Marijuana service: No Meds Allergies Allergy/AdvReac Type Severity Reaction Status Date / Time No Known Allergies Allergy Mild NOT Verified 04/10/25 05:13 APPLICABLE Active Medications: Current Medications Acetaminophen (Acetaminophen 325 Mg Tablet) 650 mg PO Q6H PRN PRN Reason: Pain, Mild 1-3,fever,headache Calcium Carbonate (Calcium Carbonate 750 Mg Tab.Chew) 750 mg PO Q4H PRN PRN Reason: Heartburn Hydromorphone HCl (Hydromorphone Hcl 0.5 Mg/0.5 Ml Syringe) 0.5 mg IVPUSH Q4H PRN; Protocol PRN Reason: Pain, Severe (Pain Scale 7-10) Lactated Ringer's (Lr) 1,000 mls @ 125 mls/hr IVCONT .Q8H [facility] Last Infusion: 04/10/25 16:24 Dose: 125 mls/hr Ketorolac Tromethamine (Ketorolac Tromethamine 30 Mg/Ml Vial) 15 mg IVPUSH Q6H PRN PRN Reason: Pain, Moderate(Pain Scale 4-6) Stop: 04/15/25 11:28 Magnesium Hydroxide (Milk Of Magnesia 30 Ml Oral.Susp) 30 ml PO DAILY PRN PRN Reason: Constipation Melatonin (Melatonin 3 Mg Tablet) 6 mg PO BEDTIME PRN PRN Reason: Insomnia Sodium Chloride (0.9 % Sodium Chloride Flush 3 Ml Syringe) 3 ml IVFLUSH QSHIFT [facility] Last Admin: 04/10/25 15:25 Dose: Not Given Home Medications ?Medication ?Instructions ?Recorded ?Confirmed ?Last Taken ?Type cetirizine 10 mg tablet 10 mg PO DAILY PRN allergies 04/10/25 04/10/25 Unknown History mirtazapine 15 mg tablet 15 mg PO BEDTIME 04/10/25 04/10/25 04/09/25 History Physical Exam Vital Signs: Vital Signs: Last Vital Signs Temp 98.1 F 04/10/25 15:07 Pulse 54 04/10/25 15:07 Resp 18 04/10/25 15:07 BP 100/60 04/10/25 15:07 Pulse Ox 98 04/10/25 15:07 O2 Del Method Room Air 04/10/25 15:07 BMI result Body Mass Index 21.5 Const: General: cooperative, healthy appearing and no acute distress Orientation/consciousness: patient oriented x3 HEENT: Head: Yes normal to inspection, Yes normocephalic and Yes atraumatic Eyes: Conjunctivae: conjunctivae normal Neck: Neck: Yes normal visual inspection and Yes trachea midline Chest: Chest palpation & inspection: normal inspection of the chest Resp: Effort & Inspection: normal respiratory effort GI: Inspection: Yes normal to inspection : General: Yes CVA tenderness (left) Back/Spine/Pelvis: Back: CVA tenderness (left) Neuro: General: patient oriented x3 Psych: Appearance: grossly normal Results Labs 04/11/25 06:09 04/11/25 06:09 Labs: Abnormal lab results 04/10/25 04/10/25 Range/Units 05:42 05:49 WBC 16.9 H (4.8-10.8) X10*3/uL Immature Gran % (Auto) 0.7 H (0.0-0.4) % [place] # (Auto) 1.6 H (0.1-1.2) X10*3/uL Eos # (Auto) 0.5 H (0.0-0.4) X10*3/uL Abs Immat Gran (auto) 0.11 H (0.00-0.03) X10*3/uL Absolute Neuts (auto) 11.1 H (2.0-8.3) x10*3/uL BUN 18 H (9-16) mg/dL Random Glucose 151 H (60-115) mg/dL Urine Protein 100 (2+) H (Neg-Trace) mg/dL Urine Blood Moderate (2+) H (Negative) Urine RBC 3-5 H (0-2) /HPF Short CBC 04/10/25 Range/Units 05:42 WBC 16.9 H (4.8-10.8) X10*3/uL Hgb 14.2 (12.0-16.0) g/dl Hct 42.9 (37.0-47.0) % Plt Count 273 (160-400) X10*3/uL BMP 04/10/25 05:42 Sodium 140 Potassium 3.4 Chloride 106 Carbon Dioxide 22 BUN 18 H Creatinine 0.77 Calcium 9.3 Liver Function 04/10/25 Range/Units 05:42 Total Bilirubin 0.5 (0.0-1.0) mg/dL AST 17 (5-31) U/L ALT 13 (0-31) U/L Alkaline Phosphatase 65 (39-117) U/L Albumin 4.7 (3.5-5.0) g/dL Urine 04/10/25 Range/Units 05:49 Urine Color Yellow Urine Appearance Cloudy Urine pH 5.0 (5.0-9.0) Ur Specific [place] 1.025 (1.005-1.025) Urine Protein 100 (2+) H (Neg-Trace) mg/dL Urine Glucose (UA) Negative (Negative) mg/dL Urine Test NEGATIVE (NEGATIVE) All other labs normal. Imaging Additional studies: Date of Service: 04/10/25 EXAMINATION: CT ABDOMEN PELVIS WITHOUT IV CONTRAST HISTORY: left flank pain COMPARISON: There are no prior studies available for comparison. TECHNIQUE: CT scan of the abdomen and pelvis was performed without contrast using standard departmental protocol. Coronal and sagittal reformatted images were generated and reviewed. Oral contrast material was not administered per department protocol. This CT exam was performed with one or more of the following dose reduction techniques: automated exposure control, adjustment of the mA and/or kV according to patient size, use of iterative reconstruction technique. DLP: 392 mGy-cm FINDINGS: LOWER CHEST: The visualized lung bases are clear. There is no pleural effusion. CARDIOVASCULATURE: The heart is normal in size. There is no pericardial effusion. LIVER: The liver is normal in size and contour. The liver has an unremarkable unenhanced appearance. GALLBLADDER / BILE DUCTS: The gallbladder is unremarkable. There is no intra or extrahepatic biliary ductal dilatation. SPLEEN: The spleen is normal in size and has an unremarkable unenhanced appearance. PANCREAS: The pancreas has an unremarkable unenhanced appearance. ADRENAL GLANDS: Unremarkable. KIDNEYS/RETROPERITONEUM: There is a punctate calculus at the upper pole the right kidney and a 3 mm calculus at the lower pole. There is a probable 10 mm cyst at the upper pole. There is no hydronephrosis. The left kidney demonstrates multiple 1-2 mm nonobstructing calculi at the upper pole and multiple calculi at the lower pole measuring up to 3 mm in size. There is moderate left hydroureteronephrosis to the level of a 3 mm UVJ calculus. There is a moderate amount of perinephric fluid and stranding about the left kidney. LYMPH NODES: No retroperitoneal lymphadenopathy is identified in the abdomen or pelvis. VASCULATURE: The abdominal aorta demonstrates atherosclerotic calcification, but is normal in caliber. MESENTERY/PERITONEUM: No free fluid. No masses. There is no free intraperitoneal gas. STOMACH: There is a small to moderate hiatal hernia. The remainder of the stomach is collapsed. SMALL BOWEL: The small bowel is normal in caliber. COLON: The colon is unremarkable. APPENDIX: Normal. URINARY BLADDER/PELVIC ORGANS: The urinary bladder is collapsed, limiting evaluation. The uterus has an unremarkable unenhanced appearance. BONES / SOFT TISSUES: No suspicious bony or soft tissue abnormalities. IMPRESSION: 1. Moderate left hydroureteronephrosis secondary to a 3 mm UVJ calculus. Bilateral nephrolithiasis as described. 2. Small hiatal hernia. Assessment and Plan (1) Renal colic on left side: Status: Acute (2) Left ureteral stone: Status: Acute Plan 3 mm UVJ stone, 24 hr IV hydration, NPO past MN. Will add on for tomorrow if doesn't pass stone Procedures Date of Service Date of Service: 04/16/25
--- NOTE | 2025-04-10 19:44 | P.EN_ITS ---
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 Pt seen and examined. ECG Sinus tachycardia, no ischemic changes. Pt feels warm, experiencing chills during exam. Pt received tylenol and orderd toradol. Pt will start ceftriaxone empirically noting presentation. Blood cultures previously collected. Pt will continue IVF as ordered with bolus. 2245 Pt's HR now 68, Temp 98.6. Pt pain free currently requesting mirtazapine which has been ordered. Time Spent With Patient Time: Total time managing care of this patient today ____ minutes.
--- NOTE | 2025-04-10 21:42 | PC.NURSE ---
Addendum entered by Kathleen Robles RN 04/10/25 21:47: pr's temp 98.1 orally and heart rate down to 68. Original Note: 1924 pt s heart rate in the 140's.Pt had the chills and was starting to shake.Jodi ROALND notified. stat EKG done, 1Liter LR bolus given, pt medicated with tylenol 650mg po and toradol 30mg IV.pt also given 1 gram IV Rocephin.
[2025-04-11] VITALS: BP 133/72; PULSE 146; RESP 18; TEMP 37; O2SAT 99
[2025-04-11] MEDS: Lactated Ringers 1,000 ML 999 ML IV (00:52)
--- NOTE | 2025-04-11 02:12 | PC.NURSE ---
0030 pt's heart rate in the 140's again, temp 98.6.Pt starting to get the chills again.LUAN Zapata notified, 1L LR bolus, IV Tylenol 1000mg and Rocephin 1 gram IV ordered.
[2025-04-11 03:05] VITALS: BP 129/61; PULSE 76; RESP 18; TEMP 36.9; O2SAT 98
[2025-04-11 06:39] LABS: Hematocrit 35.8 % (37.0-47.0); Hemoglobin 11.8 g/dl (12.0-16.0); Mean Corpuscular HGB Conc 33.0 g/dl (31.0-35.0); Mean Corpuscular Hemoglobin 30.2 pg (27.0-33.0); Mean Corpuscular Volume 91.6 fL (80.0-98.0); NRBC Abs Auto 0.000 X10*3/uL (0.0-0.012); NRBC Pct Auto 0.0 /100WBC (0.0-0.2); Platelet Count 226 X10*3/uL (160-400); Red Blood Count 3.91 X10*6/uL (4.20-5.50); White Blood Count 11.5 X10*3/uL (4.8-10.8)
[2025-04-11 06:40] LABS: Anion Gap 10 (12-20); Blood Urea Nitrogen 9 mg/dL (9-16); Calcium 8.8 mg/dL (8.4-10.2); Carbon Dioxide 24 mmol/L (22-29); Chloride 110 mmol/L (96-108); Creatinine Clr Calc Pharmacy 100.0; Estimated Glomerular Filt Rate > 60; Potassium 3.9 mmol/L (3.3-5.1); Sodium 140 mmol/L (135-145)
--- NOTE | 2025-04-11 07:26 | HO.PM.IMPN ---
Subjective Subjective Date of Service: 04/11/25 Interval History: Abdominal pain Review of Systems Review of Systems: Yes all other systems are reviewed and are negative Physical Exam Exam: Exam: Appearance: Alert.? Oriented X3.? cvs: rrr, [id number] , no murmur res: clear to auscultation ,no rhonchii or wheezing abd: no rebound or guarding ,nt, bs present. ext pulses present , no cyanosis ,Gait well balanced well coordinated. neuro: axo3 , nonfocal. Vital Signs: Vital Signs: Last Vital Signs Temp 98.5 F 04/11/25 03:05 Pulse 76 04/11/25 03:05 Resp 18 04/11/25 03:05 BP 129/61 04/11/25 03:05 Pulse Ox 98 04/11/25 03:05 O2 Del Method Room Air 04/11/25 03:05 BMI result Body Mass Index 21.5 Objective Data Active Medications Acetaminophen (Acetaminophen 325 Mg Tablet) 650 mg PO Q6H PRN PRN Reason: Pain, Mild 1-3,fever,headache Last Admin: 04/10/25 19:41 Dose: 650 mg Documented By: EROS Calcium Carbonate (Calcium Carbonate 750 Mg Tab.Chew) 750 mg PO Q4H PRN PRN Reason: Heartburn Last Admin: 04/11/25 00:51 Dose: 750 mg Documented By: EROS Hydromorphone HCl (Hydromorphone Hcl 0.5 Mg/0.5 Ml Syringe) 0.5 mg IVPUSH Q4H PRN; Protocol PRN Reason: Pain, Severe (Pain Scale 7-10) Lactated Ringer's (Lr) 1,000 mls @ 125 mls/hr IVCONT .Q8H RONNY Last Admin: 04/11/25 03:58 Dose: Not Given Documented By: EROS Non-Admin Reason: IV Running Ceftriaxone Sodium 2 gm/ (Sodium Chloride) 50 mls @ 100 mls/hr IV Q24H [facility] Ketorolac Tromethamine (Ketorolac Tromethamine 30 Mg/Ml Vial) 15 mg IVPUSH Q6H PRN PRN Reason: Pain, Moderate(Pain Scale 4-6) Stop: 04/15/25 11:28 Magnesium Hydroxide (Milk Of Magnesia 30 Ml Oral.Susp) 30 ml PO DAILY PRN PRN Reason: Constipation Melatonin (Melatonin 3 Mg Tablet) 6 mg PO BEDTIME PRN PRN Reason: Insomnia Mirtazapine (Mirtazapine 15 Mg Tablet) 15 mg PO BEDTIME [facility] Last Admin: 04/10/25 22:43 Dose: 15 mg Documented By: EROS Ondansetron HCl (Ondansetron Hcl 4 Mg/2 Ml Vial) 4 mg IVPUSH Q6H PRN PRN Reason: Nausea and Vomiting Last Admin: 04/11/25 01:51 Dose: 4 mg Documented By: EROS Sodium Chloride (0.9 % Sodium Chloride Flush 3 Ml Syringe) 3 ml IVFLUSH QSHIFT [facility] Last Admin: 04/11/25 00:07 Dose: Not Given Documented By: EROS Non-Admin Reason: IV Running Labs 04/11/25 06:09 04/11/25 06:09 Labs: Laboratory Results - last 24 hr 04/11/25 06:09 MCV 91.6 MCH 30.2 MCHC 33.0 RDW 13.4 Plt Count 226 MPV 10.6 Absolute Nucleated RBC 0.000 Nucleated RBC % (auto) 0.0 Anion Gap 10 L Estim Creat Clear Calc 100.0 Estimated GFR > 60 Random Glucose 100 Lactic Acid 1.3 Calcium 8.8 Assessment and Plan Plan 49-year-old female with no significant past medical history who presents to the emergency department with abdominal pain found to have kidney stone Abdominal pain Due to left UVJ stone with associated hydroureteronephrosis IV hydration, flomax, pain control urology consultation If stone does not pass, we will need stent in a.m.. We will be NPO at midnight UA negative, no need for Abx at this time DVT prophylaxis-mechanical devices, encourage early ambulation Quality Stroke Does the patient have a stroke diagnosis?: No VTE Prior VTE?: No VTE Risk Level:: Medical - moderate - high VTE Device Contraindication: N/A - Device Ordered VTE Drug Contraindication: Treatment Not Indicated
[2025-04-11 07:52] VITALS: BP 142/70; PULSE 61; RESP 16; TEMP 36.3; O2SAT 98
--- NOTE | 2025-04-11 08:43 | P.PNUR_ITS ---
Subjective Subjective Date of Service: 04/11/25 Patient reports: feels better Interval history: Jessica states she thinks she passed the stone, had chills overnight. Received 2 gm IV Rocephen Exam - no CVAT, abdomen soft NT Physical Exam 2 Vital Signs: Vital Signs: Last Vital Signs Temp 97.4 F 04/11/25 07:52 Pulse 61 04/11/25 07:52 Resp 16 04/11/25 07:52 BP 142/70 H 04/11/25 07:52 Pulse Ox 98 04/11/25 07:52 O2 Del Method Room Air 04/11/25 07:52 BMI result Body Mass Index 21.5 Urology Results Labs 04/11/25 06:09 04/11/25 06:09 Labs: Laboratory Results - last 24 hr 04/11/25 06:09 WBC 11.5 H RBC 3.91 L Hgb 11.8 L Hct 35.8 L MCV 91.6 MCH 30.2 MCHC 33.0 RDW 13.4 Plt Count 226 MPV 10.6 Absolute Nucleated RBC 0.000 Nucleated RBC % (auto) 0.0 Sodium 140 Potassium 3.9 Chloride 110 H Carbon Dioxide 24 Anion Gap 10 L BUN 9 Creatinine 0.60 Estim Creat Clear Calc 100.0 Estimated GFR > 60 Random Glucose 100 Lactic Acid 1.3 Calcium 8.8 Progress Note: A&P Assessment and plan (1) Renal colic on left side: Status: Acute (2) Left ureteral stone: Status: Acute Plan Clinically improved. May have passed stone, will check US renal and bladder. Keep NPO for now. Time Spent With Patient Time: Total time managing care of this patient today ____ minutes. Progress Note: Quality Stroke Does the patient have a stroke diagnosis?: No
--- NOTE | 2025-04-11 09:46 | PC.NURSE ---
IV fluids listed as infused in MAR. Infusion has not yet completed. Fluids continue to infuse at ordered rate.
[2025-04-11] MEDS: Lactated Ringers 1,000 ML 125 ML IVCONT (11:12)
[2025-04-11 11:26] VITALS: BP 140/90; PULSE 69; RESP 16; TEMP 36.5; O2SAT 98
--- NOTE | 2025-04-11 14:16 | PM.DS ---
DS: Providers Provider Date of Service: 04/11/25 Date of admission: 04/10/25 11:40 Date of discharge: 04/11/25 Primary care physician: Alex Camarillo MD Consults: 04/10/25 11:33 Consult to Urology Routine Consulting Provider: [facility] Reason for consultation: left UPJ stone with hydro Has provider been notified: Yes Attending physician on discharge: Vivian Chiang Discharging clinician: Vivian Chiang DS: Diagnosis Discharge Diagnosis (1) Renal colic on left side: Status: Acute (2) Left ureteral stone: Status: Acute DS: Summary Hospital Course Hospital Course: HPI:49-year-old female who presents to the emergency department with abdominal pain. Patient states that she began having left-sided abdominal pain with associated chills which began overnight. She reports episodes of vomiting, no diarrhea. She reports episodes where she feels cold but is sweating. In the emergency department she was noted to have elevated white blood cell count of 16.9. Urinalysis was obtained and was negative for acute infection. She had CT scan of the abdomen which showed moderate left hydroureteronephrosis secondary to 3 mm UVJ calculus with bilateral nephrolithiasis. Patient had severe pain and required multiple doses of IV narcotics. Continued to report left-sided pain, denies left flank pain or urinary symptoms. Hospital course: Patient was admittedwith abdominal pain found to have kidney stone : Found to have mild leukocytosis, CT abdomen showed:Moderate left hydroureteronephrosis secondary to a 3 mm UVJ calculus. Bilateral nephrolithiasis as described: Patient was started on hydration, pain meds, IV fluid, Flomax, subsequently patient seems to be improving, overnight had some chills and mild tachycardia: Likely related to pain secondary to above stone. Blood culture negative@24hrs , urine culture pending. Leukocytosis improving, no fever or tachycardia since last night. Patient is asymptomatic. Renal ultrasound:Moderate left hydronephrosis that was present on CT scan yesterday has nearly resolved. Additionally, the left ureteral jet was documented. This suggests that the left ureterovesicular junction stone has passed. Patient is very eager to go home, discussed with her in detail length-urine cultures still pending she will follow up outpatient and since she is improving significantly, and likely passed the stone. We will give p.o. Ceftin 250 mg p.o. b.i.d. for 7 days. If any new symptoms patient understands that she needs to come back for further evaluation. plan: Complete Ceftin 250 b.i.d. for 7 days. If any new symptoms patient understands that she needs to come back for further evaluation. Follow up with Urology outpatient. Above management discussed with the patient in detail length, staff present during conversation. Patient understand the whole conversation and in agreement with the above plan. Time spent 50 minute. Time Attestation Total time managing care of this patient today: 50 mintues. Discharge Coordination Time (in mins): 50min Quality: Safe Use of Opioids Does Pt have an Active Cancer Diagnosis on the Problem List?: No Quality: Stroke Does the patient have a stroke diagnosis?: No Physical Exam Exam: Exam: Appearance: Alert.? Oriented X3.? . cvs: rrr, [id number] , no murmur res: clear to auscultation ,no rhonchii or wheezing abd: no rebound or guarding ,nt, bs present. no cva tenderness ext pulses present , no cyanosis . neuro: axo3 , nonfocal. Vital Signs: Vital Signs: Last Vital Signs Temp 97.7 F 04/11/25 11:26 Pulse 69 04/11/25 11:26 Resp 16 04/11/25 11:26 BP 140/90 H 04/11/25 11:26 Pulse Ox 98 04/11/25 11:26 O2 Del Method Room Air 04/11/25 11:26 BMI result Body Mass Index 21.5 DS: Data Data Completed and Pending Labs on day of discharge: Laboratory Results - last 24 hr 04/11/25 06:09 WBC 11.5 H RBC 3.91 L Hgb 11.8 L Hct 35.8 L MCV 91.6 MCH 30.2 MCHC 33.0 RDW 13.4 Plt Count 226 MPV 10.6 Absolute Nucleated RBC 0.000 Nucleated RBC % (auto) 0.0 Sodium 140 Potassium 3.9 Chloride 110 H Carbon Dioxide 24 Anion Gap 10 L BUN 9 Creatinine 0.60 Estim Creat Clear Calc 100.0 Estimated GFR > 60 Random Glucose 100 Lactic Acid 1.3 Calcium 8.8 Preliminary micro results at discharge 04/10/25 06:44 Blood Culture - Preliminary Blood - Venous No growth after 24 hours. 04/10/25 06:44 Blood Culture - Preliminary Blood - Venous No growth after [address] scan - abdomen: Radiologist's impression: ITS Impressions Abdomen/Pelvis CT 04/10/25 08:30 IMPRESSION: 1. Moderate left hydroureteronephrosis secondary to a 3 mm UVJ calculus. Bilateral nephrolithiasis as described. 2. Small hiatal hernia. Electronically signed by: Ronnell Beal MD 04/10/2025 08:52 AM EDT RP Retroperitoneum Ultrasound 04/11/25 10:38 IMPRESSION: Moderate left hydronephrosis that was present on CT scan yesterday has nearly resolved. Additionally, the left ureteral jet was documented. This suggests that the left ureterovesicular junction stone has passed. A 3 mm stone was demonstrated in the lower pole of the left kidney. Discharge Plan Discharge Anticipated Discharge Date/Time: 04/11/25 14:09 Patient Disposition: Home, Self-Care Discharge Diagnosis: left UVJ stone with associated hydroureteronephrosis, possible UTI. Referrals: Alex Camarillo MD [Primary Care Provider, [facility]] - 1 Week Discharge Medications: New tamsulosin [Flomax] 0.4 mg capsule 0.4 mg PO BEDTIME Qty: 7 0RF cefuroxime axetil 250 mg tablet 250 mg PO Q12H Qty: 14 0RF Continued cetirizine 10 mg tablet 10 mg PO DAILY PRN (Reason: allergies) mirtazapine 15 mg tablet 15 mg PO BEDTIME Discharge Orders: Discharge Order (Routine); Ordered 04/11/25 Ordered By: Vivian Chiang Diet: Advance to usual diet Activity on Discharge: As tolerated Stand Alone Forms: Patient Portal Discharge page Print Language: [place] Care Plan Goals: as below. Health Concerns: Complete Ceftin 250 b.i.d. for 7 days. If any new symptoms patient understands that she needs to come back for further evaluation. Follow up with Urology outpatient Plan of Treatment: As above. Assessment: As above.
--- NOTE | 2025-04-11 14:50 | MHC.CM.PN ---
pt dcd self care
[2025-04-11 15:07] VITALS: BP 150/77; PULSE 65; RESP 18; TEMP 36.6; O2SAT 98
== END 2025-04-11 15:21 | disposition home or self-care (01) ==
LOC: HO.ED 11:17 → HO.EDOVER 11:40 → HO.S3 11:45
PROVIDERS: Nurse Practitioner Family; Admitting Provider Physician Assistant Medical; Emergency Provider Emergency Medicine; PCP Family Medicine; Visit Provider Internal Medicine
DX: N20.0 Calculus of kidney (principal); N20.1 Calculus of ureter; R10.A2 Flank pain, left side; R11.2 Nausea with vomiting, unspecified; R19.7 Diarrhea, unspecified; R00.0 Tachycardia, unspecified; D72.829 Elevated white blood cell count, unspecified; R94.31 Abnormal electrocardiogram [ECG] [EKG]; Z79.899 Other long term (current) drug therapy
CPT/HCPCS: 36415; 74176; 76770; 80048; 80053; 81001; 81025; 83605; 85025; 85027; 87040; 87086; 93005; 96361; 96365; 96366; 96375; 96376; 99221; 99285; J0131; J0696; J1171; J1885; J2405; J7120

== ENCOUNTER → 2025-04-10 06:22 | Outpatient (BNV) | payer OTHER, SELFPAY | PROVIDERS: Emergency Provider Emergency Medicine; Visit Provider Radiology Diagnostic Radiology | DX: R10.A0 Flank pain, unspecified side (principal) | CPT/HCPCS: 74176 ==

== ENCOUNTER 2025-04-10 11:40 | Outpatient (BNV) | payer OTHER, SELFPAY | END 2025-04-11 08:40 | PROVIDERS: Admitting Provider Physician Assistant Medical; Emergency Provider Emergency Medicine; Visit Provider Radiology Diagnostic Radiology | DX: N13.2 Hydronephrosis with renal and ureteral calculous obstruction (principal) | CPT/HCPCS: 76770 ==

== ENCOUNTER 2025-04-10 11:40 | Outpatient (BNV) | payer OTHER, SELFPAY | END 2025-04-10 19:36 | PROVIDERS: Admitting Provider Physician Assistant Medical; Emergency Provider Emergency Medicine; PCP Family Medicine; Visit Provider Internal Medicine | DX: R00.0 Tachycardia, unspecified (principal) | CPT/HCPCS: 93010 ==

== ENCOUNTER → 2025-04-10 11:40 | Outpatient (BNV) | payer OTHER, SELFPAY | PROVIDERS: Admitting Provider Physician Assistant Medical; Emergency Provider Emergency Medicine; Visit Provider Physician Assistant Medical | DX: N23 Unspecified renal colic (principal) | CPT/HCPCS: 99223; 99499 ==

== ENCOUNTER → 2025-04-10 11:40 | Outpatient (BNV) | payer OTHER, SELFPAY | PROVIDERS: Admitting Provider Physician Assistant Medical; Emergency Provider Emergency Medicine; Visit Provider Urology | DX: N23 Unspecified renal colic (principal); N20.1 Calculus of ureter | CPT/HCPCS: 99223; 99232 ==